=== PATIENT | male | born 1955 | race Caucasian/White ===

== ENCOUNTER 2017-09-27 12:29 | Day surgery (SDC) | payer OTHER ==
[2017-09-27] MEDS ORDERED: HYDROmorphone HCL 2 MG/ML 1ML VIAL (J1170) As Ordered (15:45)
[2017-09-27] MEDS ORDERED: ONDANSETRON 4MG/2ML VIAL (J2405) As Ordered (15:45)
[2017-09-27] MEDS ORDERED: ROCURONIUM BROMIDE 50 MG/5 ML VIAL As Ordered (15:45)
[2017-09-27] MEDS ORDERED: KETOROLAC 60 MG/2 ML VIAL (J1885) As Ordered (15:45)
[2017-09-27] MEDS ORDERED: dexameTHASONE 4 MG/ML 1ML VIAL (J1100) As Ordered (15:45)
[2017-09-27] MEDS ORDERED: NEOSTIGMINE 10 MG/10 ML VIAL (J2710) As Ordered (15:45)
[2017-09-27] MEDS ORDERED: PROPOFOL 200 MG/20 ML VIAL As Ordered (15:45)
[2017-09-27] MEDS ORDERED: GLYCOPYRROLATE INJ 0.2 MG/ML 2 ML VIAL As Ordered (15:45)
[2017-09-27] MEDS ORDERED: MIDAZOLAM INJ 2 MG/2 ML VIAL (J2250) As Ordered (15:46)
[2017-09-27] MEDS ORDERED: fentaNYL 100 MCG/2 ML INJECTION (J3010) As Ordered (15:46)
[2017-09-27] MEDS: ROPIvacaine 0.5% 30 ML INJECTION (J2795 PER 1MG) As Ordered (16:28)
[2017-09-27] MEDS: ceFAZolin 1GM INJ (J0690 PER 500MG) As Ordered (16:28)
[2017-09-27] MEDS: LR 1,000 ML IV (18:03)
[2017-09-27] MEDS ORDERED: NORCO, ANEXSIA 5/325MG TABLET (HYDROcodone/ACETAMINOPHEN) PO ×2 (18:15)
[2017-09-27] MEDS ORDERED: fentaNYL 100 MCG/2 ML INJECTION (J3010) IV (18:15)
[2017-09-27] MEDS ORDERED: LR 1,000 ML IV (18:15)
[2017-09-27] MEDS: PERCOCET 5MG/325MG TAB PO ×2 (18:22→18:52)
[2017-09-27] MEDS: ONDANSETRON 4MG/2ML VIAL (J2405) IV (18:22)
[2017-09-27] MEDS: MORPHINE 4 MG/ML 1ML VIAL/SYRINGE (J2270) IV (19:10)
[2017-09-28] MEDS ORDERED: ASPIRIN 325 MG TAB PO (09:00)
== END 2017-09-27 20:53 | disposition home or self-care (01) ==
LOC: M SDC 20:53
DX: S82.122A Displaced fracture of lateral condyle of left tibia, initial encounter for closed fracture (principal); W11.XXXA Fall on and from ladder, initial encounter; Y93.89 Activity, other specified; Y92.89 Other specified places as the place of occurrence of the external cause; Y99.1 Military activity; M94.262 Chondromalacia, left knee; I10 Essential (primary) hypertension; E78.5 Hyperlipidemia, unspecified; K21.9 Gastro-esophageal reflux disease without esophagitis; G47.33 Obstructive sleep apnea (adult) (pediatric); M54.31 Sciatica, right side; Z79.899 Other long term (current) drug therapy; Z79.82 Long term (current) use of aspirin
CPT/HCPCS: 27535